=== PATIENT | male | born 1950 | race Caucasian/White ===

== ENCOUNTER 2018-06-13 13:17 | Observation (INO) | payer MEDICARE ==
[~2018-06-13] VITALS: Ht 193 cm; Wt 109.7 kg
[2018-06-13 13:57] LABS: BASOPHILS # (AUTO) 0.02 x10^3/uL (0-0.1); BASOPHILS % (AUTO) 0 % (0-1); EOSINOPHILS # (AUTO) 0.08 x10^3/uL (0-0.4); EOSINOPHILS % (AUTO) 1 % (1-7); LYMPHOCYTES # (AUTO) 0.95 x10^3/uL (1-3.4); LYMPHOCYTES % (AUTO) 8 % (22-44); MD NO; MEAN CORPUSCULAR HEMOGLOBIN 31.3 pg (27.5-34.5); MEAN CORPUSCULAR HGB CONC 34.2 g/dL (33.2-36.2); MEAN CORPUSCULAR VOLUME 91.6 fL (81-97); MEAN PLATELET VOLUME 7.4 fL (7.4-10.4); MONOCYTES # (AUTO) 0.44 x10^3/uL (0.2-0.8); MONOCYTES % (AUTO) 4 % (2-9); NEUTROPHILS # (AUTO) 10.08 x10^3/uL (1.8-6.8); NEUTROPHILS % (AUTO) 87 % (42-75); PLATELET COUNT 295 x10^3/uL (130-400); RED BLOOD COUNT 4.73 x10^6/uL (4.38-5.82); RED CELL DISTRIBUTION WIDTH 12.9 % (9.4-14.8)
[2018-06-13] MEDS ORDERED: PLEASE ENTER HEIGHT AND WEIGHT MC SCH (14:00)
[2018-06-13] MEDS ORDERED: SODIUM CHLORIDE FLUSH 10ML SYR IVF ONE (14:00)
[2018-06-13 14:06] LABS: INTERNATIONAL NORMALIZED RATIO 0.97 (0.93-1.1)
[2018-06-13 14:08] LABS: ANION GAP 6 mmol/L (5-15); CALCIUM 8.5 mg/dL (8.5-10.1); CHLORIDE 108 mmol/L (98-107)
[2018-06-13 14:09] LABS: ALANINE AMINOTRANSFERASE 39 U/L (12-78); ALBUMIN 3.4 g/dL (3.4-5.0)
[2018-06-13 14:13] LABS: ALKALINE PHOSPHATASE 58 U/L (45-117); BILIRUBIN,TOTAL 0.4 mg/dL (0.2-1.0); TOTAL PROTEIN 6.5 g/dL (6.4-8.2); TROPONIN I < 0.015 ng/mL (0.000-0.045)
[2018-06-13] MEDS ORDERED: morphine SULFATE 10 MG/ML, 1ML IVPush ONE (14:30)
[2018-06-13] MEDS ORDERED: MORPHINE SULFATE 4 MG/ML, 1ML ONE (14:48)
[2018-06-13] MEDS ORDERED: SODIUM CHLORIDE 0.9% 1,000 ML IV SCH (15:37)
[2018-06-13 15:45] VITALS: BP 120/81
[2018-06-13] MEDS ORDERED: ENALAPRILAT 1.25 MG/ML, 2ML IVPush PRN (16:00)
[2018-06-13] MEDS ORDERED: ONDANSETRON 2MG/ML, 2ML IVPush PRN (16:00)
[2018-06-13] MEDS ORDERED: ONDANSETRON ODT 4 MG PO PRN (16:00)
[2018-06-13] MEDS ORDERED: POLYETHYLENE GLYCOL 17 GM PACKET PO PRN (16:00)
[2018-06-13 16:13] VITALS: BP 120/81
[2018-06-13 16:14] LABS: TROPONIN I < 0.015 ng/mL (0.000-0.045)
[2018-06-13 18:18] VITALS: BP 112/72
[2018-06-13 18:19] VITALS: BP_SYST 119; BP_SYST 134; BP_DIAS 85
[2018-06-13] MEDS: OXYcodone/APAP 5/325MG TABLET PO PRN (18:36)
[2018-06-13 20:04] VITALS: BP 100/67
[2018-06-13] MEDS: SODIUM CHLORIDE 0.9% 1,000 ML IV SCH (21:21)
[2018-06-13 21:35] LABS: TROPONIN I < 0.015 ng/mL (0.000-0.045)
[2018-06-13] MEDS ORDERED: ASPI325T17 PO (21:47)
[2018-06-13] MEDS ORDERED: LOSA100T6 PO (21:47)
[2018-06-13] MEDS ORDERED: AMLO5TAB2 PO (21:47)
[2018-06-13] MEDS ORDERED: ACET-1600 PO (21:47)
[2018-06-14 01:50] VITALS: BP 114/74
[2018-06-14] MEDS: SODIUM CHLORIDE 0.9% 1,000 ML IV SCH ×2 (04:03→12:30)
[2018-06-14] MEDS: OXYcodone/APAP 5/325MG TABLET PO PRN ×2 (04:03→11:26)
[2018-06-14 05:25] LABS: BASOPHILS # (AUTO) 0.04 x10^3/uL (0-0.1); BASOPHILS % (AUTO) 0 % (0-1); EOSINOPHILS # (AUTO) 0.31 x10^3/uL (0-0.4); EOSINOPHILS % (AUTO) 3 % (1-7); LYMPHOCYTES # (AUTO) 1.53 x10^3/uL (1-3.4); LYMPHOCYTES % (AUTO) 17 % (22-44); MD NO; MEAN CORPUSCULAR HEMOGLOBIN 31.5 pg (27.5-34.5); MEAN CORPUSCULAR HGB CONC 33.8 g/dL (33.2-36.2); MEAN CORPUSCULAR VOLUME 93.1 fL (81-97); MEAN PLATELET VOLUME 7.8 fL (7.4-10.4); MONOCYTES # (AUTO) 0.76 x10^3/uL (0.2-0.8); MONOCYTES % (AUTO) 8 % (2-9); NEUTROPHILS % (AUTO) 71 % (42-75); PLATELET COUNT 278 x10^3/uL (130-400); RED CELL DISTRIBUTION WIDTH 12.7 % (9.4-14.8)
[2018-06-14 05:28] LABS: CHLORIDE 107 mmol/L (98-107)
[2018-06-14 05:48] LABS: ALANINE AMINOTRANSFERASE 36 U/L (12-78); ALBUMIN 3.2 g/dL (3.4-5.0); ALKALINE PHOSPHATASE 59 U/L (45-117); ANION GAP 6 mmol/L (5-15); BILIRUBIN,TOTAL 0.6 mg/dL (0.2-1.0); CALCIUM 8.4 mg/dL (8.5-10.1); CREATININE 0.97 mg/dL (0.7-1.3); TOTAL PROTEIN 6.2 g/dL (6.4-8.2)
[2018-06-14] MEDS ORDERED: ENOXAPARIN 40 MG/0.4 ML SQ SCH (07:30)
[2018-06-14 09:00] VITALS: BP 101/65
[2018-06-14] MEDS ORDERED: SENNA/DOCUSATE TABLET PO SCH (09:00)
[2018-06-14] MEDS ORDERED: OMNIPAQUE 350 MG/ML, 100ML BOTTLE ONE (09:33)
[2018-06-14] MEDS ORDERED: SODIUM CHLORIDE 0.9% 1,000 ML IV SCH (15:37)
[2018-06-14 15:58] VITALS: BP 124/75
== END 2018-06-14 18:00 | disposition home or self-care (01) ==
LOC: ED 14:29 → EDIP 14:30 → INTOOBSV 14:30 → ED 14:40 → 5SO 15:21
PROVIDERS: ADMIT Hospitalist; ATTEND Hospitalist
DX: M19.032 Primary osteoarthritis, left wrist (principal); M19.031 Primary osteoarthritis, right wrist; G56.03 Carpal tunnel syndrome, bilateral upper limbs; I10 Essential (primary) hypertension; J44.9 Chronic obstructive pulmonary disease, unspecified; J96.10 Chronic respiratory failure, unspecified whether with hypoxia or hypercapnia; K22.70 Barrett's esophagus without dysplasia; K44.9 Diaphragmatic hernia without obstruction or gangrene; Z79.899 Other long term (current) drug therapy; Z83.3 Family history of diabetes mellitus; Z82.49 Family history of ischemic heart disease and other diseases of the circulatory system
CPT/HCPCS: 36415; 71045; 71260; 80053; 82962; 83735; 84100; 84439; 84443; 84484; 85025; 85610; 85730; 93005; 93306; 96361; 96372; 96374; 99285; G0378; J1650; J2270; J7030; Q9967

== ENCOUNTER → 2018-09-24 | Outpatient (CLI) | payer MEDICARE ==
[~2018-09-24] MED LIST: ACET-1600 PO; AMLO5TAB7 PO; ASPI325T17 PO; LOSA100T7 PO
== END | disposition home or self-care (01) ==
LOC: CVU 07:41
PROVIDERS: ATTEND Internal Medicine Cardiovascular Disease
DX: I65.23 Occlusion and stenosis of bilateral carotid arteries (principal); I10 Essential (primary) hypertension
CPT/HCPCS: 78452; 93017; 93880; A9502